=== PATIENT | female | born 1930 ===

== ENCOUNTER 2017-11-23 12:50 | Outpatient (CLI) | payer OTHER | END 2017-11-23 12:51 | disposition home or self-care (01) | LOC: LAB 12:50 | DX: R31.0 Gross hematuria (principal); N30.00 Acute cystitis without hematuria; B96.20 Unspecified Escherichia coli [E. coli] as the cause of diseases classified elsewhere ==

== ENCOUNTER 2018-09-01 05:35 | Day surgery (SDC) | payer OTHER ==
[~2018-09-01 05:35] MED LIST: ASPIRIN81 M1 PO; ATORVASTATIN CA10 MG PO; FOLGARD TABLET1 EACH PO; FORTAMET500 MG PO; GLYCOTROL CAPS1 EACH PO; LOSARTA PO
== END 2018-09-01 17:17 | disposition home or self-care (01) ==
LOC: CIR.AMB 05:35
DX: N20.0 Calculus of kidney (principal)